=== PATIENT | female | born 1935 | race Caucasian/White ===

== ENCOUNTER 2017-01-10 21:56 | Inpatient (IN) | payer MEDICARE, BC ==
[~2017-01-10] VITALS: Ht 149.9 cm; Wt 44.9 kg
--- NOTE | ~2017-01-10 | WRIGHTHP ---
[place], [place] PATIENT HISTORY AND PHYSICAL EXAM NAME: HENRI ALVARADO [facility] #: [id number] UNIT #: [id number] ROOM: 405 DOCTOR: EPHRAIM PRYOR MD BIRTHDATE: [birth year] DOS: 01/11/2017 HISTORY OF PRESENT ILLNESS: The patient is 81 years old. The patient is not known to me. The patient comes in with complaints of not feeling good and has had some chest discomfort on and off for the last few weeks. She went to see Dr. Acevedo yesterday who advised her to go to the Emergency Room. The patient states that she has also had some feelings of her heart racing. She denied having any chest pain this morning, does not have any shortness of breath, any abdominal pain, nausea, emesis, any cough, any dizziness, lightheadedness. PAST MEDICAL HISTORY: Significant for: 1. COPD, last hospitalized in 2012 under my service. At that time, she had come in with chest pain. 2. 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 3. Fibromyalgia. 4. History of depression. MEDICATIONS: She is on are ProAir inhaler, DuoNebs, aspirin, Plavix 75, iron 99, lorazepam 0.5 t.i.d., ranitidine 300 at bedtime, MiraLax 17 grams b.i.d. SOCIAL HISTORY: Nonsmoker, does not use any alcohol. She lives at home with her daughter. She has 4 children. PHYSICAL EXAMINATION: VITAL SIGNS: Graphic trend shows a pressure of 144/83, pulse of 81, respirations 18, temperature 97.5. LUNGS: Clear. HEART: Regular. ABDOMEN: Soft, nontender. EXTREMITIES: Without any edema. She has some point tenderness over the right rib cage around 4th and 5th ribs, especially when I touch, she complains of significant discomfort. She has redness of the coccygeal area with some deformity from a sacral fracture and poor healing, but there are no open wounds. LABORATORY DATA: At the time of admission showed a normal EKG as per ER, I have not seen the EKG yet. White cell count is 4.7, hemoglobin 12.9, hematocrit 34.4. Comprehensive glucose 97, BUN 9, electrolytes were normal. CT of the head was done which was negative. ASSESSMENT AND PLAN: 1. The patient who presents with tiredness and chest pain and palpitations on and off. Admitted, rule out myocardial infarction protocol so far is negative. Echocardiogram, Cardiology consultation and possible stress test will be ordered. EKG showed sinus, normal axis, nonspecific ST-T wave changes. 2. Chronic obstructive pulmonary disease without any evidence of exacerbation. She is on inhalers, which are being continued. 3. Right-sided chest pain, mostly in the ribcage. A CT of the chest will be ordered. 4. Poorly healed sacral fracture with resultant redness of the skin of the sacral area, no actual decubitus is seen today, advised DuoDERM to take the [place], [place] PATIENT HISTORY AND PHYSICAL EXAM NAME: HENRI ALVARADO UNIT #: [id number] ROOM: 405 DOCTOR: EPHRAIM PRYOR MD BIRTHDATE: [birth year] pressure off. 5. Once ruled out and if the stress is negative, we will discharge her to home tomorrow. EPHRAIM PRYOR MD CM:HISPHYS:PATIENT HISTORY AND PHYSICAL EXAMINATION [id number] EPHRAIM PRYOR MD 01/11/17 0839 interface
--- NOTE | ~2017-01-10 | PR ---
[place], [place] PROGRESS NOTE NAME: HENRI ALVARADO [facility] #: [id number] UNIT #: [id number] ROOM: 405 DOCTOR: EPHRAIM PRYOR MD BIRTHDATE: [birth year] DOS: 01/12/2017 SUBJECTIVE: The patient is doing fine without any complaints this morning other than headaches. PHYSICAL EXAMINATION: VITAL SIGNS: Blood pressure is 139/83, pulse of 108, respirations 20, temperature 98.0. LUNGS: Diminished breath sounds. No wheezes, rales or rhonchi heard. HEART: Regular. ABDOMEN: Soft. EXTREMITIES: Without any edema. LABORATORY DATA: Echocardiogram shows normal LV function, ejection fraction of 70%. CT of the chest did not show any abnormalities other than some atelectasis in the lower lobes. 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 ASSESSMENT AND PLAN: 1. The patient with complaints of precordial chest pain, awaiting a stress test this morning that is good. The plan is to discharge her to home today. 2. Right-sided chest pain. Again, CT of the chest was negative. This appears to be possibly costochondritis. 3. Celiac artery high-grade stenosis. I did plan on doing an MRI, but MRA of the celiac artery, but unfortunately we do not have any vascular surgery capability here, so this can be done as an outpatient at a center where vascular surgeons can see the patient. This can be done as an outpatient. 4. Abnormal thyroid study. The patient is aware of that. She does not want any further workup for that, so the plan therefore is to discharge her to home today after the stress test is done, not started on any new medications and one dose of Toradol to be given for headache. EPHRAIM PRYOR MD CM:PNTRANS [id number] EPHRAIM PRYOR MD 01/12/1748 interface
--- NOTE | ~2017-01-10 | ST ---
[place], [place] EXERCISE STRESS TEST REPORT NAME: HENRI ALVARADO [facility] #: [id number] UNIT #: [id number] ROOM: 405 DOCTOR: NALINI ELLISON,WENDI BIRTHDATE: [birth year] DOS: 01/12/2017 Lexiscan scan stress test REASON FOR TEST: Evaluation of chest pain. PHYSICAL EXAMINATION NECK: Supple. LUNGS: Clear anteriorly. HEART: Regular rhythm. PROTOCOL: Lexiscan protocol. Maximum heart rate 126, peak blood pressure 114/62. Symptoms: The patient is chest pain free. EKG: Resting EKG sinus rhythm. Stress EKG showed no ischemia, no arrhythmias. CONCLUSION: Clinically, the patient is chest pain free. EKG, nonischemic. POST-STRESS COMPLICATIONS: None. The patient received total of 0.4 mg Lexiscan. WENDI GAYLE MD CM:STRESS:EXERCISE STRESS TEST REPORT [id number] WENDI GAYLE MD
[2017-01-10 21:56] VITALS: BP 150/84
[~2017-01-10 21:56] MED LIST: ANORO ELLIPTA1 POW IH; ANTIVERT25 MG PO; ASPIRIN81 M1 PO; ATIVAN0.5 MG PO; ATIVAN1 MG PO; CALTRATE 600 +1 TA1 PO; CARAFATE1 G1 PO; CARAFATE1 GM PO; CEFTIN250 MG PO; CIPRO500 MG PO; CIPROFLOXACIN500 MG PO; CITRACAL LIQUI500 MG PO; CLINDAMYCIN HC300 MG PO; DARVOCET N 1001 TAB PO; DEXILANT60 M1 PO; DONNATAL1 TAB PO; Duoneb 3ML 3 MG/3 ML INH; ERYTHROMYCIN OPTH; ERYTHROMYCIN5 MG/G1 OP; FER-IRON75 MG/0.6 PO; FERROUS SULFAT325 MG PO; FLAGYL500 MG PO; FLAX SEED OIL1000 MG PO; KENALOG 0.5% CR15 GM PO; MASON NATURAL1200 MG PO; MEDROL DOSEPAK4 MG PO; MIRALAX POWDER255 GM PO; MIRALAX17 GM/DOSE PO; MOTRIN800 MG PO; MULTIVITAMIN FO1 CAP PO; NEBULIZER AEROS1 DEV; NEURONTIN300 MG PO; NEXIUM40 MG PO; OMEGA 3; OSCAL,OYSTER S500 MG PO; OYSTERCAL 500500 MG PO; PERCOCET 325 MG1 TA2 PO; PLAVIX75 MG PO; PREDNISONE10 MG PO; PREDNISONE20 MG PO; PROAIR HFA0.09 MG/AC IH; PROTONIX40 MG PO; RESTASIS 0.4 M0.4 M1 OP; SYMBICORT1 AE1 IH; SYSTANE 0.4%-0.1 SOL OPH; VIBRAMYCIN100 MG PO; VICODIN 5-3001 EACH PO; VICODIN 5/500 505 MG PO; VICODIN ES 7501 TA1 PO; VICODIN ES 7501 TAB PO; VITAMIN C500 MG PO; Ventolin 02.5 MG/3 M INH; ZANTAC 300300 MG PO; Zofran4 MG PO
[2017-01-10 22:19] LABS: BASO % 0.8 % (0.0-1.0); EOS # 0.2 10*3/uL (0.0-0.4); EOS % 3.8 % (1.0-4.0); HEMATOCRIT 34.4 % (37.0-47.0); HEMOGLOBIN 11.9 g/dl (12.0-16.0); LYMPH # 1.6 10*3/uL (1.3-4.4); LYMPH % 33.8 % (27.0-41.0); MEAN CORPUSCULAR HGB 33.9 pg (27.0-31.0); MEAN CORPUSCULAR HGB CONC 34.6 g/dl (33.0-37.0); MEAN PLATELET VOLUME 8.8 fl (9.6-12.3); MONO # 0.4 10*3/uL (0.1-1.0); MONO % 8.7 % (3.0-9.0); NEUT # 2.5 10*3/uL (2.3-7.9); NEUT % 52.7 % (47.0-73.0); PLATELET COUNT AUTOMATED 238 10*3/uL (130-400); RED BLOOD COUNT 3.51 10*6/uL (4.10-5.10); RED CELL DISTRI WIDTH 11.3 % (0-14.5); WHITE BLOOD COUNT 4.7 10*3/uL (4.8-10.8)
[2017-01-10] MEDS ORDERED: MIRALAX17 GM PO (22:23)
[2017-01-10] MEDS ORDERED: IRON90 MG PO (22:24)
[2017-01-10 22:29] VITALS: BP 152/86
[2017-01-10 22:29] LABS: PROTHROMBIN TIME 10.1 SECONDS (9.0-12.4)
[2017-01-10 22:37] LABS: ALBUMIN 3.7 gm/dl (3.1-4.5); ALKALINE PHOSPHATASE 71 U/L (45-117); BILIRUBIN, TOTAL 0.2 mg/dl (0.2-1.0); BUN 9 mg/dl (7-24); CARBON DIOXIDE 28 mmol/L (21-32); CHLORIDE 104 mmol/L (98-107); EST GLOM FILT AFRICAN AMERICAN > 60 ml/min; GLUCOSE 97 mg/dL (65-99); MAGNESIUM 2.2 mg/dL (1.5-2.1); POTASSIUM 3.8 mmol/L (3.5-5.1); SGOT/AST 13 IU/L (3-35); SGPT/ALT 17 U/L (12-78); SODIUM 143 mmol/L (136-145); TOTAL PROTEIN 6.1 gm/dL (6.4-8.2)
[2017-01-10 22:39] LABS: TROPONIN I < 0.015 ng/ml (<0.045)
[2017-01-10 22:52] VITALS: BP 129/73
[2017-01-10 23:18] VITALS: BP 137/84
[2017-01-10 23:32] VITALS: BP 146/71
[2017-01-10 23:51] VITALS: BP 128/69
[2017-01-11 00:25] VITALS: BP 144/83
[2017-01-11 08:00] VITALS: BP 128/78
[2017-01-11 12:00] VITALS: BP 134/77
[2017-01-11 16:00] VITALS: BP 126/67
[2017-01-11 20:00] VITALS: BP 146/80
[2017-01-12] VITALS: BP 139/83
[2017-01-12 08:00] VITALS: BP 100/58
[2017-01-12 16:00] VITALS: BP 102/71
== END 2017-01-12 17:42 | disposition home or self-care (01) | DRG 206 ==
LOC: ED 21:56 → EDHOLD 23:48 → 4E 23:48
PROVIDERS: Emergency Medicine Emergency Medical Services
PROC: 4A02XM4 Measurement of Cardiac Total Activity, External Approach (ICD-10-PCS; principal; 2017-01-12)
DX: M94.0 Chondrocostal junction syndrome [Tietze] (principal); I77.4 Celiac artery compression syndrome; J44.9 Chronic obstructive pulmonary disease, unspecified; M79.7 Fibromyalgia; F32.9 Major depressive disorder, single episode, unspecified

== ENCOUNTER → 2017-10-12 | Outpatient (CLI) | payer MEDICARE, OTHER ==
[~2017-10-12] MED LIST changes: +IRON90 MG PO; +MIRALAX17 GM PO
== END | disposition home or self-care (01) ==
LOC: LAB 17:37 → RAD 17:37
DX: J44.9 Chronic obstructive pulmonary disease, unspecified (principal); R19.7 Diarrhea, unspecified

== ENCOUNTER → 2017-10-13 | Outpatient (CLI) | payer MEDICARE, OTHER | END | disposition home or self-care (01) | LOC: LAB 14:13 | DX: J44.9 Chronic obstructive pulmonary disease, unspecified (principal); R19.7 Diarrhea, unspecified; Z85.828 Personal history of other malignant neoplasm of skin ==

== ENCOUNTER → 2017-12-25 | Outpatient (CLI) | payer MEDICARE, OTHER ==
[2017-12-25 13:44] LABS: HEMATOCRIT 40.3 % (37.0-47.0); HEMOGLOBIN 14.1 g/dl (12.0-16.0); MEAN CELL VOLUME 95.7 fl (81.0-99.0); MEAN CORPUSCULAR HGB 33.5 pg (27.0-31.0); MEAN PLATELET VOLUME 8.7 fl (9.6-12.3); RED BLOOD COUNT 4.21 10*6/uL (4.10-5.10); RED CELL DISTRI WIDTH 11.7 % (0-14.5)
[2017-12-25 14:00] LABS: ALBUMIN 3.9 gm/dl (3.1-4.5); ALKALINE PHOSPHATASE 81 U/L (45-117); BUN 5 mg/dl (7-24); CHLORIDE 103 mmol/L (98-107); CREATININE 0.62 mg/dL (0.55-1.02); POTASSIUM 4.6 mmol/L (3.5-5.1); SGOT/AST 16 IU/L (3-35); SGPT/ALT 19 U/L (12-78); SODIUM 140 mmol/L (136-145); TOTAL PROTEIN 6.7 gm/dL (6.4-8.2)
== END | disposition home or self-care (01) ==
LOC: LAB 13:25 → CT 14:00
PROVIDERS: Family Medicine
DX: R22.1 Localized swelling, mass and lump, neck (principal); R53.83 Other fatigue

== ENCOUNTER → 2017-12-27 | Outpatient (CLI) | payer MEDICARE, OTHER | END | disposition home or self-care (01) | LOC: WOUNDCARE 01:26 | DX: L89.159 Pressure ulcer of sacral region, unspecified stage (principal); L53.9 Erythematous condition, unspecified; R63.4 Abnormal weight loss; Z87.891 Personal history of nicotine dependence ==

== ENCOUNTER → 2017-12-31 | Outpatient (CLI) | payer MEDICARE, OTHER | END | disposition home or self-care (01) | LOC: US 10:52 | DX: I65.23 Occlusion and stenosis of bilateral carotid arteries (principal); I70.0 Atherosclerosis of aorta ==

== ENCOUNTER → 2018-04-16 | Outpatient (CLI) | payer MEDICARE, OTHER | END | disposition home or self-care (01) | LOC: RAD 15:49 | DX: R05 Cough (principal); R06.02 Shortness of breath ==

== ENCOUNTER → 2018-05-22 | Outpatient (CLI) | payer MEDICARE, OTHER | END | disposition home or self-care (01) | LOC: RAD 13:42 | DX: M54.5 Low back pain (principal); M41.86 Other forms of scoliosis, lumbar region ==

== ENCOUNTER → 2018-08-01 | Outpatient (CLI) | payer MEDICARE, OTHER ==
[2018-08-01 15:16] LABS: HEMATOCRIT 39.1 % (37.0-47.0); HEMOGLOBIN 13.5 g/dl (12.0-16.0); MEAN CELL VOLUME 98.5 fl (81.0-99.0); MEAN CORPUSCULAR HGB CONC 34.5 g/dl (33.0-37.0); MEAN PLATELET VOLUME 8.8 fl (9.6-12.3); RED BLOOD COUNT 3.97 10*6/uL (4.10-5.10); RED CELL DISTRI WIDTH 11.1 % (0-14.5); WHITE BLOOD COUNT 4.4 10*3/uL (4.8-10.8)
[2018-08-01 15:36] LABS: ALBUMIN 3.6 gm/dl (3.1-4.5); ALKALINE PHOSPHATASE 74 U/L (45-117); BUN 4 mg/dl (7-24); CHLORIDE 105 mmol/L (98-107); CREATININE 0.75 mg/dL (0.55-1.02); POTASSIUM 4.3 mmol/L (3.5-5.1); SGOT/AST 18 IU/L (3-35); SGPT/ALT 17 U/L (12-78); SODIUM 140 mmol/L (136-145); TOTAL PROTEIN 6.5 gm/dL (6.4-8.2)
== END | disposition home or self-care (01) ==
LOC: LAB 14:54
PROVIDERS: Family Medicine
DX: M79.81 Nontraumatic hematoma of soft tissue (principal); E55.9 Vitamin D deficiency, unspecified; D64.9 Anemia, unspecified

== ENCOUNTER → 2018-11-21 | Outpatient (CLI) | payer MEDICARE, OTHER | END | disposition home or self-care (01) | LOC: RAD 15:16 | DX: J43.9 Emphysema, unspecified (principal) ==

== ENCOUNTER → 2019-03-21 | Outpatient (CLI) | payer MEDICARE, OTHER | END | disposition home or self-care (01) | LOC: RAD 14:33 | DX: M16.0 Bilateral primary osteoarthritis of hip (principal); M25.752 Osteophyte, left hip; M25.751 Osteophyte, right hip; R07.81 Pleurodynia; Z91.81 History of falling ==